=== PATIENT | male | born 1950 | race Caucasian/White ===

== ENCOUNTER 2017-05-14 11:18 | Inpatient (IN) | payer MEDICAID, MEDICARE, OTHER ==
[~2017-05-14] VITALS: Ht 175.3 cm; Wt 84.7 kg
[2017-05-14] VITALS (22 sets, daily range): BP systolic 128–168; BP diastolic 64–87; PULSE 60–92; RESP 12–20; Ht 175.3 cm; Wt 84.7 kg
[~2017-05-14 11:18] MED LIST: ALLO100T PO
[2017-05-14] MEDS ORDERED: TAMS0.4C2 PO (11:46)
[2017-05-14 12:35] LABS: BASOPHILS % 0.4 % (0.0-2.0); EOSINOPHILS % 0.7 % (0.0-7.0); HEMATOCRIT 43.1 % (42.0-52.0); HEMOGLOBIN 14.9 g/dl (14.0-18.0); LYMPHOCYTES # 0.6 10^3/ul (0.8-2.9); LYMPHOCYTES % 11.3 % (15.0-51.0); MEAN CORPUSCULAR HEMOGLOBIN 29.1 pg (29.0-33.0); MEAN CORPUSCULAR HGB CONC 34.6 g/dl (32.0-37.0); MEAN CORPUSCULAR VOLUME 84.2 fl (82.0-101.0); MEAN PLATELET VOLUME 10.8 fl (7.4-10.4); MONOCYTE # 0.5 10^3/ul (0.3-0.9); MONOCYTES % 9.6 % (0.0-11.0); NEUTROPHILS % 77.3 % (39.0-77.0); PLATELET COUNT 164 10^3/UL (140-415); RED BLOOD COUNT 5.12 10^6/ul (4.70-6.10); RED CELL DISTRIBUTION WIDTH 13.2 % (11.5-14.5); WHITE BLOOD COUNT 5.4 10^3/ul (4.8-10.8)
[2017-05-14 12:36] LABS: ADD UMIC NO; UR ASCORBIC ACID NEGATIVE (NEGATIVE); UR BILIRUBIN (Dip) NEGATIVE (NEGATIVE); UR BLOOD (Dip) NEGATIVE (NEGATIVE); UR CLARITY SLIGHTLY CLOUDY (CLEAR); UR COLOR YELLOW (YELLOW); UR GLUCOSE (Dip) NEGATIVE (NEGATIVE); UR KETONES (Dip) NEGATIVE (NEGATIVE); UR LEUKOCYTE ESTERASE (Dip) NEGATIVE Leu/ul (NEGATIVE); UR MUCUS MODERATE /HPF (NONE SEEN); UR NITRITE (Dip) NEGATIVE (NEGATIVE); UR RBC 1 /HPF (0-5); UR SPECIFIC GRAVITY (Dip) 1.024 (1.003-1.030); UR SQUAMOUS EPITHELIAL CELL FEW /HPF (FEW); UR TOTAL PROTEIN (Dip) NEGATIVE (NEGATIVE); UR UROBILINOGEN (Dip) 1+ mg/dL (NEGATIVE)
--- NOTE | 2017-05-14 12:41 | RADRPT ---
PROCEDURE: XR Chest. CLINICAL INDICATION: Preoperative TECHNIQUE: Single frontal view of the chest was obtained. COMPARISON: None. FINDINGS: A right-sided Port-A-Cath is noted with its tip at the superior cavoatrial junction. The heart and mediastinum are within normal limits. The lungs are clear. There is no significant pleural effusion or pneumothorax. IMPRESSION: No acute disease. Right-sided Port-A-Cath. RPTAT: EE Physician Khadar Date Time Electronically viewed and signed by Physician Khadar on 05/14/2017 12:40 RA/
[2017-05-14 12:54] LABS: INR 0.98
[2017-05-14 12:55] LABS: PARTIAL THROMBOPLASTIN TIME 29.7 Sec (25.0-35.0)
[2017-05-14] MEDS ORDERED: HETASTARCH 6% NACL 500 ML ONE (13:02)
[2017-05-14 13:34] LABS: ALBUMIN 4.2 g/dl (3.3-4.9); ALBUMIN/GLOBULIN RATIO 1.75; BILIRUBIN,INDIRECT 0.4 mg/dl (0-1.1); BILIRUBIN,TOTAL 0.4 mg/dl (0.2-1.3); TOTAL PROTEIN 6.6 g/dl (6.1-8.1)
--- NOTE | 2017-05-14 13:51 | HPN ---
Date/Time of Note Date/Time of Note DATE: 05/14/17 TIME: 13:51 Interval H&P Admission Note Pt. seen H&P reviewed: No system changes BRYAN POLO MD May 14, 2017 13:51
[2017-05-14 13:52] LABS: CALCIUM 9.4 mg/dl (8.4-10.2); CREATININE 0.89 mg/dl (0.61-1.24); POTASSIUM 3.7 mmol/L (3.5-5.1)
[2017-05-14] MEDS ORDERED: MIDAZOLAM 1 MG/ML 2 ML INJ ONE (14:06)
[2017-05-14] MEDS ORDERED: CEFAZOLIN 1 GM INJ ONE (14:06)
[2017-05-14] MEDS ORDERED: DEXAMETHASONE 4 MG/ML 1 ML INJ ONE (14:06)
[2017-05-14] MEDS ORDERED: ROCURONIUM 50 MG INJ ONE (14:06)
[2017-05-14] MEDS ORDERED: PROPOFOL 20 ML ONE (14:06)
[2017-05-14] MEDS ORDERED: ONDANSETRON 4 MG INJ ONE (14:06)
[2017-05-14] MEDS ORDERED: GLYCOPYRROLATE 0.4 MG INJ ONE (14:06)
[2017-05-14] MEDS ORDERED: NEOSTIGMINE 3 MG/3 ML SYRINGE ONE (14:06)
[2017-05-14] MEDS ORDERED: LABETALOL HCL 20MG INJ IV PRN (15:00)
[2017-05-14] MEDS ORDERED: MIDAZOLAM 1 MG/ML 2 ML INJ IV PRN (15:00)
[2017-05-14] MEDS ORDERED: ONDANSETRON 4 MG INJ IV PRN ×2 (15:00→17:30)
[2017-05-14] MEDS ORDERED: FENTAnyl 50 MCG/ML VIAL IV PRN ×2 (15:00)
[2017-05-14] MEDS ORDERED: hydrALAzine 20 MG INJ IV PRN (15:00)
[2017-05-14] MEDS ORDERED: HYDROmorphONE (0.2 MG/ML) 10ML SYG IV PRN ×3 (15:00)
[2017-05-14] MEDS ORDERED: ALBUTEROL 0.083% (NEB) 2.5 MG/3 ML AMP HHN PRN (15:00)
[2017-05-14] MEDS ORDERED: OXYCODONE/ACETAMINOPHEN (5/325) TAB PO PRN ×2 (15:00)
[2017-05-14] MEDS ORDERED: DIPHENHYDRAMINE 50 MG INJ IV PRN (15:00)
[2017-05-14] MEDS ORDERED: IPRATROPIUM (NEB) 0.5 MG/2.5 ML AMP HHN PRN (15:00)
[2017-05-14] MEDS ORDERED: TRIMETHOBENZAMIDE 100 MG/ML VIAL IM PRN (15:00)
[2017-05-14] MEDS ORDERED: EPHEDrine SULFATE 50 MG/5 ML SYG IV PRN (15:00)
[2017-05-14] MEDS ORDERED: MEPERIDINE 25 MG INJ IV PRN (15:00)
[2017-05-14] MEDS ORDERED: LABETALOL HCL 20MG INJ ONE (15:11)
[2017-05-14] MEDS ORDERED: PHENYLephrine (100 MCG/ML) 5ML SYG ONE (15:31)
--- NOTE | 2017-05-14 16:00 | OPR ---
Date/Time of Note Date/Time of Note DATE: 05/14/17 TIME: 15:59 Operative Report Procedure Date: May 14, 2017 Preoperative Diagnosis Med mass Postoperative Diagnosis Same Operation Performed Medistanotomy Surgeon: BRYAN POLO MD Anesthesia Type: general Estimated Blood Loss: none Transfusion Required: no Specimen: none Grafts/Implants: none Complications: no Pt Condition Post Procedure: stable Disposition: PACU Indications Med msss Operative\Procedure Findings dicrtated Procedure Description dictated BRYAN POLO MD May 14, 2017 16:00
[2017-05-14] MEDS: FENTAnyl 50 MCG/ML VIAL IV PRN ×2 (16:43→17:00)
--- NOTE | 2017-05-14 16:56 | RADRPT ---
PROCEDURE: XR Chest. CLINICAL INDICATION: Chest tube placement . TECHNIQUE: Single frontal chest x-ray. COMPARISON: 05/14/2017 FINDINGS: There is a new left-sided chest tube in place with tip near the level of the left hilum. Post surgic al skin earl are seen in the subclavian region. There is no definite pneumothorax. Right-sided Po rt-A-Cath is in place unchanged. The lungs are clear of infiltrates, edema, or effusions. .. The ca rdiomediastinal silhouette is unremarkable. The osseous structures are intact. IMPRESSION: Interval placement of left-sided chest tube with postsurgical changes at the left upper thorax. No evidence of pneumothorax. Right-sided Port-A-Cath in place.. RPTAT: GG .Carlos Galindo MD, Date Time Electronically viewed and signed by .Carlos Galindo MD, on 05/14/2017 16:55 .L/
[2017-05-14] MEDS ORDERED: ACETAMINOPHEN 325 MG TAB PO PRN (17:30)
[2017-05-14] MEDS ORDERED: MAGNESIUM HYDROXIDE 30ML CUP PO PRN (17:30)
[2017-05-14] MEDS ORDERED: HYDROCODONE/APAP (5/325) TAB PO PRN (17:30)
[2017-05-14] MEDS ORDERED: NACL 0.9% 3 ML SYG IV SCH (17:30)
[2017-05-14] MEDS ORDERED: DOCUSATE SODIUM 100 MG CAP PO PRN (17:30)
[2017-05-14] MEDS ORDERED: HYDROmorphONE 1 MG/ML SYG IV PRN (17:30)
[2017-05-14] MEDS ORDERED: ACETAMINOPHEN 650 MG SUPP PR PRN (17:30)
--- NOTE | 2017-05-14 17:45 | QN ---
Documentation Comment [id number] Presley MD May 14, 2017 17:45
[2017-05-14] MEDS ORDERED: ALBUTEROL/IPRATROPIUM (NEB) 3 ML AMP HHN PRN (18:00)
[2017-05-14] MEDS: DEXTROSE 5%-0.45% NACL 1,000 ML IV SCH (18:31)
--- NOTE | 2017-05-14 18:51 | CONS ---
DATE OF ADMISSION: 05/14/2017 DATE OF CONSULTATION: 05/14/2017 HISTORY OF PRESENT ILLNESS: Thank you Dr. Bledsoe for asking me to see the above patient in consultation. The patient is seen in the recovery room. The patient with a history of lymphoma. History of treatment to the mass who presented to this hospital with mass in the chest and underwent mediastinoscopy. The patient is denying any chest pain, not short of breath, no palpitations. No cough, no hemoptysis. PAST MEDICAL HISTORY: Positive for lymphoma, history of chemotherapy, and history of BPH. ALLERGIES: NEGATIVE. FAMILY HISTORY: Denies. SOCIAL HISTORY: Denies. MEDICATIONS: Flomax. REVIEW OF SYSTEMS: HEENT: Unremarkable. RESPIRATORY: No chest pain per patient. ABDOMEN: Unremarkable. EXTREMITIES: Unremarkable. GYMNASTICS INSTRUCTOR: Unremarkable. PHYSICAL EXAMINATION: GENERAL APPEARANCE: The patient is awake, alert. Not in any acute respiratory distress. VITAL SIGNS: Positive for blood pressure 153/77. HEENT: Head is atraumatic, normocephalic. Pupils equal and reactive. NECK: Supple. No JVD. LUNGS: Clear with rhonchi. CARDIAC: S1, S2, normal. Chest tube noted. ABDOMEN: Soft, bowel sounds present. EXTREMITIES: No cyanosis, clubbing, or edema. GYMNASTICS INSTRUCTOR: The patient is awake, alert, with no focal deficit. LABORATORY DATA: Sodium 141, potassium 3.7, and hematocrit 43.1. IMPRESSION: 1. The patient is status post mediastinoscopy. 2. The patient is status post mass. 3. History of lymphoma. PLAN: Continue oxygen and incentive spirometry. IV fluids and bronchodilators. PRN medication. Orders were done. Dictated By: Elliott Adame MD /addie/jay /Document#: [id number]
[2017-05-14] MEDS: TAMSULOSIN (SR) 0.4 MG CAP PO SCH (20:44)
[2017-05-15 00:10] VITALS: BP 123/62; RESP 19
[2017-05-15 00:11] VITALS: BP 134/64; PULSE 88; RESP 20
[2017-05-15] MEDS: PANTOPRAZOLE (EC) 40 MG TAB PO SCH (05:35)
[2017-05-15 05:37] LABS: ABNORMAL IP MESSAGE 1; HEMATOCRIT 40.4 % (42.0-52.0); HEMOGLOBIN 13.3 g/dl (14.0-18.0); LYMPHOCYTES # 0.3 10^3/ul (0.8-2.9); LYMPHOCYTES % 3.5 % (15.0-51.0); MEAN CORPUSCULAR HEMOGLOBIN 27.8 pg (29.0-33.0); MEAN CORPUSCULAR HGB CONC 32.9 g/dl (32.0-37.0); MEAN CORPUSCULAR VOLUME 84.5 fl (82.0-101.0); MEAN PLATELET VOLUME 10.6 fl (7.4-10.4); MONOCYTE # 0.6 10^3/ul (0.3-0.9); MONOCYTES % 8.4 % (0.0-11.0); NEUTROPHILS % 87.6 % (39.0-77.0); PLATELET COUNT 141 10^3/UL (140-415); POSITIVE DIFF @See below; RED BLOOD COUNT 4.78 10^6/ul (4.70-6.10); RED CELL DISTRIBUTION WIDTH 13.3 % (11.5-14.5); WHITE BLOOD COUNT 7.5 10^3/ul (4.8-10.8)
[2017-05-15] MEDS ORDERED: PANTOPRAZOLE 40 MG INJ IV SCH (06:00)
[2017-05-15 06:11] LABS: ALBUMIN 3.4 g/dl (3.3-4.9); ALBUMIN/GLOBULIN RATIO 1.54; BILIRUBIN,INDIRECT 0.4 mg/dl (0-1.1); BILIRUBIN,TOTAL 0.4 mg/dl (0.2-1.3); CREATININE 0.73 mg/dl (0.61-1.24); POTASSIUM 4.1 mmol/L (3.5-5.1); TOTAL PROTEIN 5.6 g/dl (6.1-8.1)
[2017-05-15 08:02] VITALS: BP 148/70; RESP 16
[2017-05-15] MEDS: DEXTROSE 5%-0.45% NACL 1,000 ML IV SCH (08:33)
--- NOTE | 2017-05-15 08:55 | OPR ---
DATE OF OPERATION: 05/14/2017 PREOPERATIVE DIAGNOSIS: Mediastinal mass. POSTOPERATIVE DIAGNOSIS: Mediastinal mass. OPERATION PERFORMED: 1. Mediastinotomy. 2. Mediastinal mass resection. 3. Resection of the left-sided rib. SURGEON: Dr. Bledsoe. ANESTHESIA: General. Risks, benefits, complications, alternatives have been explained to the patient and the family. Consent obtained. All taken. OPERATIVE PROCEDURE: Patient was placed in supine position, prepped and draped in usual sterile fashion. Time-out was called. Antibiotics were given. I made an 8 cm incision in the left chest just anterior to the angle of [place]. Incision was taken down to subcutaneous tissue. The 2nd rib was identified and it was resected about 6 cm. The mediastinum was then exposed. A 4 x 4 cm mass in the mediastinum was then identified and resected, sent for pathological examination. A 24-Tajik chest tube was placed into pleural cavity. The rib was placed back using steel wires. The muscular layers of the chest were reapproximated using 0 Vicryl suture in a running fashion. Subcutaneous tissue was reapproximated using 2-0 Vicryl suture and skin was closed using earl. The patient tolerated the procedure well. Dictated By: Enrique Bledsoe MD /addie/virginie /Document#: [id number]
--- NOTE | 2017-05-15 09:08 | RADRPT ---
PROCEDURE: XR Chest. CLINICAL INDICATION: Postop, shortness of breath TECHNIQUE: A single AP view of the chest was obtained. COMPARISON: Chest x-ray dated 05/14/2017 FINDINGS: There is a right chest Port-A-Cath with tip near the cavoatrial junction. A left-sided chest tube i s in place. There is mild bibasilar atelectasis. No focal airspace opacification, pleural effusion or pneumotho rax is seen. The cardiomediastinal silhouette is upper limits of normal in size. The osseous struc tures are unremarkable. There are postsurgical changes the left chest wall skin earl and costal wires. IMPRESSION: 1. Bibasilar atelectasis, mildly increased when compared to the prior examination. 2. Tubes and lines, as described above. RPTAT: HH .Kandi Osullivan MD, Date Time Electronically viewed and signed by .Kandi Osullivan MD, on 05/15/2017 09:07 .Antnoio/
[2017-05-15 14:30] VITALS: BP 135/67; RESP 18
--- NOTE | 2017-05-15 19:17 | RADRPT ---
Vent Rate: 63 bpm RR Interval: 0 msec MA Interval: 180 msec QRS Duration: 96 msec QT Interval: 434 msec QTC Interval: 444 msec P-R-T [place]: 64 - 66 - 63 degrees Normal sinus rhythm Normal ECG Electronically Signed By: Alfred Chen [id number]
[2017-05-15 19:43] VITALS: BP 152/78; RESP 18
[2017-05-15] MEDS: TAMSULOSIN (SR) 0.4 MG CAP PO SCH (21:00)
--- NOTE | 2017-05-15 23:39 | PN ---
Date/Time of Note Date/Time of Note DATE: 05/15/17 TIME: 23:38 Assessment/Plan VTE Prophylaxis VTE Prophylaxis Intervention: other Lines/Catheters IV [facility] Peripheral IV Urinary Cath still in place: No Assessment/Plan Chief Complaint/Hosp Course IMPRESSION: 1. The patient is status post mediastinoscopy. 2. The patient is status post mass. 3. History of lymphoma. PLAN PER SURGERY Problems: Subjective 24 Hr Interval Summary Respiratory: shortness of breath (BETTER) Cardiovascular: no complaints Exam/Review of Systems Vital Signs Vitals Vital Signs Date Time Temp Pulse Resp B/P Pulse Ox O2 Delivery O2 Flow Rate FiO2 05/15/17 22:11 Nasal Cannula 2.0 05/15/17 19:43 97.9 62 18 152/78 95 Intake and Output 05/14/17 05/14/17 05/15/17 15:00 23:00 07:00 Intake Total 2310 ml 1160 ml Output Total 75 ml 480 ml 1680 ml Balance 2235 ml -480 ml -520 ml Exam Neck: supple Respiratory: diminished breath sounds Cardiovascular: regular rate and rhythm Gastrointestinal: soft Musculoskeletal: nl extremities to inspection Extremities: normal pulses Results Result Diagram: 05/15/17 0449 05/15/17 0449 Results 24 hrs Laboratory Tests Test 05/15/17 04:49 White Blood Count 7.5 # Red Blood Count 4.78 Hemoglobin 13.3 L Hematocrit 40.4 L Mean Corpuscular Volume 84.5 Mean Corpuscular Hemoglobin 27.8 L Mean Corpuscular Hemoglobin Concent 32.9 Red Cell Distribution Width 13.3 Platelet Count 141 Mean Platelet Volume 10.6 H Neutrophils % 87.6 H Lymphocytes % 3.5 L Monocytes % 8.4 Eosinophils % 0.0 Basophils % 0.0 Nucleated Red Blood Cells % 0.0 Neutrophils # (Manual) 6.6 Lymphocytes # 0.3 L Monocytes # 0.6 Eosinophils # 0.0 Basophils # 0.0 Nucleated Red Blood Cells # 0.0 Sodium Level 139 Potassium Level 4.1 Chloride Level 103 Carbon Dioxide Level 28 Anion Gap 12 Blood Urea Nitrogen 12 Creatinine 0.73 Glucose Level 156 Calcium Level 9.0 Total Bilirubin 0.4 Direct Bilirubin 0.00 Indirect Bilirubin 0.4 Aspartate Amino Transf (AST/SGOT) 41 Alanine Aminotransferase (ALT/SGPT) 80 H Alkaline Phosphatase 48 Total Protein 5.6 #L Albumin 3.4 Globulin 2.20 Albumin/Globulin Ratio 1.54 Medications Medications Current Medications Tamsulosin HCl 0.4 mg 0.4 mg HS PO Last administered on 05/15/17 21:00; Admin Dose 0.4 MG; Start 05/14/17 at 21:00 Dextrose/Sodium Chloride (D5-1/2ns) 1,000 ml @ 60 mls/hr [id number] IV Last administered on 05/15/17 08:33; Admin Dose 60 MLS/HR; Start 05/14/17 at 17:14 Ondansetron HCl (Zofran Inj) 4 mg Q6H PRN IV NAUSEA AND/OR VOMITING; Start 05/14 at 17:30 Acetaminophen (Tylenol Tab) 650 mg Q6H PRN PO PAIN LEVEL 1-3 OR FEVER; Start at 17:30 Acetaminophen (Tylenol Supp) 650 mg Q6H PRN DC PAIN LEVEL 1-3 OR FEVER; Start 05/14/17 at 17:30 Acetaminophen/ Hydrocodone Bitart ([place] (5/325)) 1 tab Q6H PRN PO MODERATE PAIN LEVEL 4-6; Start 05/14/17 at 17:30 Hydromorphone HCl (Dilaudid) 0.5 mg Q4H PRN IV SEVERE PAIN LEVEL 7-10; Start at 17:30 Docusate Sodium (Colace) 100 mg Q12H PRN PO CONSTIPATION; Start 05/14/17 at 17: 30 Magnesium Hydroxide (Milk Of Mag) 30 ml DAILY PRN PO CONSTIPATION; Start at 17:30 Bisacodyl (Dulcolax) 5 mg DAILY PRN PO CONSTIPATION; Start 05/14/17 at 17:30 Pantoprazole (Protonix Tab) 40 mg DAILY@06 PO Last administered on 05/15/17 05: 35; Admin Dose 40 MG; Start 05/15/17 at 06:00 ZA ZEPEDA MD May 15, 2017 23:39
[2017-05-16] MEDS: DEXTROSE 5%-0.45% NACL 1,000 ML IV SCH ×2 (00:12→19:14)
[2017-05-16 02:00] VITALS: BP 113/62; RESP 18
[2017-05-16 05:32] LABS: ABNORMAL IP MESSAGE 1; BASOPHILS % 0.2 % (0.0-2.0); EOSINOPHILS % 0.5 % (0.0-7.0); HEMATOCRIT 38.7 % (42.0-52.0); HEMOGLOBIN 12.6 g/dl (14.0-18.0); LYMPHOCYTES # 0.4 10^3/ul (0.8-2.9); LYMPHOCYTES % 6.5 % (15.0-51.0); MEAN CORPUSCULAR HEMOGLOBIN 27.9 pg (29.0-33.0); MEAN CORPUSCULAR HGB CONC 32.6 g/dl (32.0-37.0); MEAN CORPUSCULAR VOLUME 85.8 fl (82.0-101.0); MEAN PLATELET VOLUME 10.4 fl (7.4-10.4); MONOCYTE # 0.6 10^3/ul (0.3-0.9); MONOCYTES % 10.5 % (0.0-11.0); NEUTROPHILS % 81.8 % (39.0-77.0); PLATELET COUNT 124 10^3/UL (140-415); POSITIVE DIFF @See below; RED BLOOD COUNT 4.51 10^6/ul (4.70-6.10); RED CELL DISTRIBUTION WIDTH 13.4 % (11.5-14.5); WHITE BLOOD COUNT 5.7 10^3/ul (4.8-10.8)
[2017-05-16 05:52] LABS: ALBUMIN 3.4 g/dl (3.3-4.9); ALBUMIN/GLOBULIN RATIO 1.41; BILIRUBIN,INDIRECT 0.2 mg/dl (0-1.1); BILIRUBIN,TOTAL 0.2 mg/dl (0.2-1.3); CALCIUM 8.5 mg/dl (8.4-10.2); CREATININE 0.83 mg/dl (0.61-1.24); POTASSIUM 3.8 mmol/L (3.5-5.1); TOTAL PROTEIN 5.8 g/dl (6.1-8.1)
[2017-05-16] MEDS: PANTOPRAZOLE (EC) 40 MG TAB PO SCH (06:05)
[2017-05-16 07:58] VITALS: BP 146/78; RESP 16
[2017-05-16] MEDS: BISACODYL (EC) 5 MG TAB PO PRN ×2 (10:21→21:54)
--- NOTE | 2017-05-16 13:20 | PN ---
Date/Time of Note Date/Time of Note DATE: 05/16/17 TIME: 13:19 Assessment/Plan Lines/Catheters IV Catheter Type (from Nrsg): Peripheral IV Graves in Place (from Nrsg): No Assessment/Plan Chief Complaint/Hosp Course SP Mediastanotomy will DC CT DC planning awaiting path report Problems: Subjective 24 Hr Interval Summary Constitutional: improved Pain Control: mild Exam/Review of Systems Vital Signs Vitals Vital Signs Date Time Temp Pulse Resp B/P Pulse Ox O2 Delivery O2 Flow Rate FiO2 05/16/17 07:58 98.6 62 16 146/78 96 05/16/17 07:45 Nasal Cannula 2.0 Intake and Output 05/15/17 05/15/17 05/16/17 15:00 23:00 07:00 Intake Total 280 ml 1340 ml 1950 ml Output Total 1590 ml 1410 ml Balance 280 ml -250 ml 540 ml Exam Neck: non-tender, supple Respiratory: clear to auscultation, normal air movement Cardiovascular: nl pulses, regular rate and rhythm Gastrointestinal: nl liver, spleen, non-tender, soft Results Result Diagram: 05/16/17 0453 05/16/17 0453 BRYAN POLO MD May 16, 2017 13:20
[2017-05-16 14:45] VITALS: BP 118/74; RESP 16
--- NOTE | 2017-05-16 16:35 | PN ---
Date/Time of Note Date/Time of Note DATE: 05/16/17 TIME: 16:32 Assessment/Plan VTE Prophylaxis VTE Prophylaxis Intervention: other Lines/Catheters IV C[facility]ter Type (from [facility]): Peripheral IV Urinary Cath still in place: No Assessment/Plan Chief Complaint/Hosp Course IMPRESSION: 1. The patient is status post mediastinoscopy. 2. The patient is status post mass.biopsy 3. History of lymphoma. 4 chest tube+ plan per surgery Problems: Subjective 24 Hr Interval Summary Respiratory: No pleuritic pain, No shortness of breath Cardiovascular: no complaints Gastrointestinal: no complaints Exam/Review of Systems Vital Signs Vitals Vital Signs Date Time Temp Pulse Resp B/P Pulse Ox O2 Delivery O2 Flow Rate FiO2 05/16/17 14:45 98.8 74 16 118/74 98 05/16/17 07:45 Nasal Cannula 2.0 Intake and Output 05/15/17 05/15/17 05/16/17 15:00 23:00 07:00 Intake Total 280 ml 1340 ml 1950 ml Output Total 1590 ml 1410 ml Balance 280 ml -250 ml 540 ml Exam Respiratory: diminished breath sounds Cardiovascular: regular rate and rhythm Gastrointestinal: soft Musculoskeletal: nl extremities to inspection Extremities: normal pulses Results Result Diagram: 05/16/17 0453 05/16/17 0453 Results 24 hrs Laboratory Tests Test 05/16/17 04:53 White Blood Count 5.7 # Red Blood Count 4.51 L Hemoglobin 12.6 L Hematocrit 38.7 L Mean Corpuscular Volume 85.8 Mean Corpuscular Hemoglobin 27.9 L Mean Corpuscular Hemoglobin Concent 32.6 Red Cell Distribution Width 13.4 Platelet Count 124 L Mean Platelet Volume 10.4 Neutrophils % 81.8 H Lymphocytes % 6.5 L Monocytes % 10.5 Eosinophils % 0.5 Basophils % 0.2 Nucleated Red Blood Cells % 0.0 Neutrophils # (Manual) 4.7 Lymphocytes # 0.4 L Monocytes # 0.6 Eosinophils # 0.0 Basophils # 0.0 Nucleated Red Blood Cells # 0.0 Sodium Level 140 Potassium Level 3.8 Chloride Level 104 Carbon Dioxide Level 31 Anion Gap 9 Blood Urea Nitrogen 14 Creatinine 0.83 Glucose Level 114 # Calcium Level 8.5 Total Bilirubin 0.2 Direct Bilirubin 0.00 Indirect Bilirubin 0.2 Aspartate Amino Transf (AST/SGOT) 42 Alanine Aminotransferase (ALT/SGPT) 64 Alkaline Phosphatase 44 Total Protein 5.8 L Albumin 3.4 Globulin 2.40 Albumin/Globulin Ratio 1.41 Medications Medications Current Medications Tamsulosin HCl 0.4 mg 0.4 mg HS PO Last administered on 05/15/17 21:00; Admin Dose 0.4 MG; Start 05/14/17 at 21:00 Dextrose/Sodium Chloride (D5-1/2ns) 1,000 ml @ 60 mls/hr [id number] IV Last administered on 05/16/17 00:12; Admin Dose 60 MLS/HR; Start 05/14/17 at 17:14 Ondansetron HCl (Zofran Inj) 4 mg Q6H PRN IV NAUSEA AND/OR VOMITING; Start 05/14 at 17:30 Acetaminophen (Tylenol Tab) 650 mg Q6H PRN PO PAIN LEVEL 1-3 OR FEVER; Start at 17:30 Acetaminophen (Tylenol Supp) 650 mg Q6H PRN PA PAIN LEVEL 1-3 OR FEVER; Start 05/14/17 at 17:30 Acetaminophen/ Hydrocodone Bitart ([place] (5/325)) 1 tab Q6H PRN PO MODERATE PAIN LEVEL 4-6; Start 05/14/17 at 17:30 Hydromorphone HCl (Dilaudid) 0.5 mg Q4H PRN IV SEVERE PAIN LEVEL 7-10; Start at 17:30 Docusate Sodium (Colace) 100 mg Q12H PRN PO CONSTIPATION; Start 05/14/17 at 17: 30 Magnesium Hydroxide (Milk Of Mag) 30 ml DAILY PRN PO CONSTIPATION; Start at 17:30 Bisacodyl (Dulcolax) 5 mg DAILY PRN PO CONSTIPATION Last administered on 10:21; Admin Dose 5 MG; Start 05/14/17 at 17:30 Pantoprazole (Protonix Tab) 40 mg DAILY@06 PO Last administered on 05/16/17 06: 05; Admin Dose 40 MG; Start 05/15/17 at 06:00 ZA ZEPEDA MD May 16, 2017 16:35
--- NOTE | 2017-05-16 16:52 | RADRPT ---
PROCEDURE: XR Chest. CLINICAL INDICATION: Chest pain . TECHNIQUE: Single frontal chest x-ray. COMPARISON: 05/15/2017 FINDINGS: There has been removal of the left-sided chest tube without evidence of pneumothorax. Postsurgical w ires and earl are seen overlying the left upper thorax. There is a right-sided Port-A-Cath in mesha ce with tip in the superior vena cava. The lungs are clear of alveolar infiltrates, edema, or effusi ons. There is right basilar atelectatic changes. .. The cardiomediastinal silhouette is unremarkabl e. The osseous structures are intact. IMPRESSION: Removal of left-sided chest tube without evidence of pneumothorax. Postsurgical changes in the left upper thorax. Right-sided Port-A-Cath in place. Right basilar atelectasis.. RPTAT: GG .Carlos Galindo MD, MD Date Time Electronically viewed and signed by .Carlos Galindo MD, MD on 05/16/2017 16:52 .L/
[2017-05-16 19:00] VITALS: BP 139/78; RESP 18
[2017-05-16] MEDS: TAMSULOSIN (SR) 0.4 MG CAP PO SCH (21:54)
[2017-05-17 02:00] VITALS: BP 124/70; RESP 18
[2017-05-17] MEDS: PANTOPRAZOLE (EC) 40 MG TAB PO SCH (05:53)
[2017-05-17 08:04] VITALS: BP 117/68; RESP 18
[2017-05-17] MEDS: DEXTROSE 5%-0.45% NACL 1,000 ML IV SCH (09:06)
--- NOTE | 2017-05-17 12:47 | PN ---
Date/Time of Note Date/Time of Note DATE: 05/17/17 TIME: 12:45 Assessment/Plan VTE Prophylaxis VTE Prophylaxis Intervention: ambulation Lines/Catheters IV Catheter Type (from [facility]): Peripheral IV Urinary Cath still in place: No Assessment/Plan Chief Complaint/Hosp Course 1. Status post mediastinoscopy. 2. The patient is status post mass biopsy 3. History of lymphoma. 4 s/p chest tube removal Problems: Assessment/Plan 1. d/c IV fluids 2. continue ambulation 3. resolving of constipation Subjective 24 Hr Interval Summary Gastrointestinal: constipation Exam/Review of Systems Vital Signs Vitals Vital Signs Date Time Temp Pulse Resp B/P Pulse Ox O2 Delivery O2 Flow Rate FiO2 05/17/17 08:04 97.8 68 18 117/68 94 05/16/17 07:45 Nasal Cannula 2.0 Intake and Output 05/16/17 05/16/17 05/17/17 15:00 23:00 07:00 Intake Total 1700 ml 400 ml Balance 1700 ml 400 ml Exam Constitutional: alert, oriented Respiratory: clear to auscultation Cardiovascular: other (surgical wound clean and dry), regular rate and rhythm Results Result Diagram: 05/16/17 0453 05/16/17 0453 Medications Medications Current Medications Tamsulosin HCl 0.4 mg 0.4 mg HS PO Last administered on 05/16/17 21:54; Admin Dose 0.4 MG; Start 05/14/17 at 21:00 Dextrose/Sodium Chloride (D5-1/2ns) 1,000 ml @ 60 mls/hr [id number] IV Last administered on 05/17/17 09:06; Admin Dose 60 MLS/HR; Start 05/14/17 at 17:14 Ondansetron HCl (Zofran Inj) 4 mg Q6H PRN IV NAUSEA AND/OR VOMITING; Start 05/14 at 17:30 Acetaminophen (Tylenol Tab) 650 mg Q6H PRN PO PAIN LEVEL 1-3 OR FEVER; Start at 17:30 Acetaminophen (Tylenol Supp) 650 mg Q6H PRN [place] PAIN LEVEL 1-3 OR FEVER; Start 05/14/17 at 17:30 Acetaminophen/ Hydrocodone Bitart ([place] (5/325)) 1 tab Q6H PRN PO MODERATE PAIN LEVEL 4-6; Start 05/14/17 at 17:30 Hydromorphone HCl (Dilaudid) 0.5 mg Q4H PRN IV SEVERE PAIN LEVEL 7-10; Start at 17:30 Docusate Sodium (Colace) 100 mg Q12H PRN PO CONSTIPATION; Start 05/14/17 at 17: 30 Magnesium Hydroxide (Milk Of Mag) 30 ml DAILY PRN PO CONSTIPATION; Start at 17:30 Bisacodyl (Dulcolax) 5 mg DAILY PRN PO CONSTIPATION Last administered on 21:54; Admin Dose 5 MG; Start 05/14/17 at 17:30 Pantoprazole (Protonix Tab) 40 mg DAILY@06 PO Last administered on 05/17/17 05: 53; Admin Dose 40 MG; Start 05/15/17 at 06:00 NEVA CAMPA May 17, 2017 12:47
[2017-05-17] MEDS ORDERED: LACTULOSE 30ML CUP PO PRN (13:00)
[2017-05-17] MEDS ORDERED: BISACODYL 10 MG SUPP PR ONE (13:00)
--- NOTE | 2017-05-17 13:09 | PDOCDIS ---
Discharge Instructions CONDITION Patient Condition: Good HOME CARE INSTRUCTIONS: Diet Instructions: RegularSpecial Diet: CARDIAC ACTIVITY: Activity Restrictions: Slowly Increase Activity Bathing Restrictions: warm shower, pat dry after FOLLOW UP/APPOINTMENTS Follow-up Plan dr Posey 1 week SCHOOL/WORK RELEASE May return to School/Work with: With Restrictions NEVA CAMPA May 17, 2017 13:08
[2017-05-17 15:05] VITALS: BP 113/66; RESP 18
--- NOTE | 2017-05-17 15:18 | PDOCDIS ---
Discharge Instructions CONDITION Patient Condition: Stable HOME CARE INSTRUCTIONS: Diet Instructions: RegularSpecial Diet: CARDIAC ACTIVITY: Activity Restrictions: Slowly Increase Activity Bathing Restrictions: warm shower, pat dry after FOLLOW UP/APPOINTMENTS Follow-up Plan see own pcp 1 wk, see dr arango 1 wk see own oncologist 1 wk SCHOOL/WORK RELEASE May return to School/Work with: With Restrictions ZA ZEPEDA MD May 17, 2017 15:18
[2017-05-17] MEDS ORDERED: ACET325T40 PO (15:19)
== END 2017-05-17 17:40 | disposition home or self-care (01) | DRG 165 ==
LOC: SDS 11:18 → MS1 17:31 → SDS 17:38
PROVIDERS: ADMIT Thoracic Surgery (Cardiothoracic Vascular Surgery); ATTEND Thoracic Surgery (Cardiothoracic Vascular Surgery)
PROC: 0WBC0ZZ Excision of Mediastinum, Open Approach (ICD-10-PCS; principal; 2017-05-14 13:30)
DX: J98.59 Other diseases of mediastinum, not elsewhere classified (principal); Z85.72 Personal history of non-Hodgkin lymphomas; Z92.21 Personal history of antineoplastic chemotherapy
CPT/HCPCS: 71010; 80053; 81001; 81003; 85025; 85610; 85730; 86850; 86900; 86901; 86920; 88307; 88331; 93005; C9113; J0690; J1100; J1644; J2175; J2250; J2370; J2405; J2710; J3010; J7042

== ENCOUNTER 2017-05-25 12:24 | Emergency (ER) | payer MEDICARE ==
[~2017-05-25] VITALS: Ht 167.6 cm; Wt 85.0 kg
[~2017-05-25 12:24] MED LIST changes: +ACET325T40 PO; -ALLO100T PO; +TAMS0.4C2 PO
[2017-05-25 12:29] VITALS: Ht 167.6 cm; Wt 85.0 kg
[2017-05-25 14:03] LABS: UR BACTERIA FEW /HPF (NONE SEEN); UR RBC 0 /HPF (0-5); UR SQUAMOUS EPITHELIAL CELL FEW /HPF (FEW)
[2017-05-25 14:05] LABS: ADD UMIC YES; UR ASCORBIC ACID NEGATIVE (NEGATIVE); UR BILIRUBIN (Dip) NEGATIVE (NEGATIVE); UR BLOOD (Dip) 1+ mg/dL (NEGATIVE); UR CLARITY CLEAR (CLEAR); UR COLOR YELLOW (YELLOW); UR GLUCOSE (Dip) NEGATIVE (NEGATIVE); UR KETONES (Dip) NEGATIVE (NEGATIVE); UR LEUKOCYTE ESTERASE (Dip) 1+ Leu/ul (NEGATIVE); UR NITRITE (Dip) NEGATIVE (NEGATIVE); UR SPECIFIC GRAVITY (Dip) 1.005 (1.003-1.030); UR TOTAL PROTEIN (Dip) NEGATIVE (NEGATIVE); UR UROBILINOGEN (Dip) NEGATIVE (NEGATIVE)
[2017-05-25] MEDS ORDERED: CIPR500T4 PO (14:20)
--- NOTE | 2017-05-25 14:22 | ERD ---
ER Documentation Chief Complaint Date/Time DATE: 05/25/17 TIME: 14:21 Chief Complaint difficulty urinating, takes flomax but still has problems, mild fever today HPI This is a 67-year-old male says that he is having some urinary frequency last night with some dysuria today. No blood. Said he had temperature of 99.5 at the most. No chills vomiting no abdominal pain no suprapubic pain no penile discharge. ROS All systems reviewed and are negative except as per history of present illness. Medications Home Meds Active Scripts Ciprofloxacin Hcl* (Ciprofloxacin Hcl*) 500 Mg Tablet, 500 MG PO BID, #20 TAB Prov:BAYLEE MIMS DO 05/25/17 Acetaminophen (MAPAP) 325 Mg Tablet, 650 MG PO Q6H Y for PAIN LEVEL 1-3 OR FEVER for 7 Days, TAB Prov:ZA ZEPEDA MD 05/17/17 Reported Medications Tamsulosin Hcl* (Tamsulosin Hcl*) 0.4 Mg Cap.er.24h, 0.4 MG PO HS, CAP 05/14/17 Allergies Allergies: Coded Allergies: No Known Allergy (Unverified , 05/14/17) PMhx/Soc History of Surgery: Yes (HERNIA, APENDIX) Anesthesia Reaction: No Hx Neurological Disorder: No Hx Respiratory Disorders: No Hx Cardiac Disorders: No Hx Psychiatric Problems: No Hx Miscellaneous Medical Probl: Yes (LYMPHOMA) Hx Alcohol Use: Yes (SOCIALY) Hx Substance Use: No Hx Tobacco Use: No FmHx Family History: No coronary disease Physical Exam Vitals Vital Signs Date Time Temp Pulse Resp B/P Pulse Ox O2 Delivery O2 Flow Rate FiO2 05/25/17 12:29 100.3 99 20 141/78 98 Physical Exam Const: Well-developed, well-nourished Head: Atraumatic, normocephalic Eyes: Normal Conjunctiva, PERRLA, EOMI, normal sclera, no nystagmus ENT: Normal External Ears, Nose and Mouth, moist mucus membranes. Neck: Full range of motion. No meningismus, no lymphadenopathy. Resp: Clear to auscultation bilaterally, no wheezing, rhonchi, rales Cardio: Regular rate and rhythm, no murmurs, S1 S2 present Abd: Soft, non tender x 4, non distended. Normal bowel sounds, no guarding or rebound, no pulsitile abdominal masses or bruits Skin: No petechiae or rashes, no ecchymosis , no maculopapular rash Back: No midline or flank tenderness Ext: No cyanosis, or edema, FROM x 4, normal inspection, neurovascularly intact x 4 Neur: Awake and alert, STR 5/5 x 4, sensation intact x 4, no focal findings, cerebellum intact Psych: Normal Mood and Affect Results 24 hrs Laboratory Tests Test 05/25/17 13:25 Urine Color YELLOW Urine Clarity CLEAR Urine pH 6.0 Urine Specific [place] 1.005 Urine Ketones NEGATIVEmg/dL Urine Nitrite NEGATIVEmg/dL Urine Bilirubin NEGATIVEmg/dL Urine Urobilinogen NEGATIVEmg/dL Urine Leukocyte Esterase 1+Geovanni/ul Urine Microscopic RBC 0/HPF Urine Microscopic WBC 15/HPF Urine Squamous Epithelial Cells FEW/HPF Urine Bacteria FEW/HPF Urine Hemoglobin 1+mg/dL Urine Glucose NEGATIVEmg/dL Urine Total Protein NEGATIVEmg/dl Procedures/MDM Patient has white blood cells in his urine consistent with the tract infection will treat with Cipro Departure Diagnosis: Primary Impression: UTI (urinary tract infection) Urinary tract infection type: acute cystitis Hematuria presence: without hematuria Qualified Code: N30.00 - Acute cystitis without hematuria Condition: Stable Patient Instructions: Understanding Urinary Tract Infections (UTIs) BAYLEE MIMS DO May 25, 2017 14:22
== END 2017-05-25 14:50 | disposition home or self-care (01) ==
LOC: FTE 12:24
DX: N30.00 Acute cystitis without hematuria (principal)
CPT/HCPCS: 81001; 99283

== ENCOUNTER 2017-07-23 08:13 | Emergency (ER) | payer MEDICARE, OTHER ==
[~2017-07-23] VITALS: Ht 175.3 cm; Wt 85.9 kg
[~2017-07-23 08:13] MED LIST changes: +CIPR500T4 PO
[2017-07-23 08:17] VITALS: Ht 175.3 cm; Wt 85.9 kg
[2017-07-23 08:57] LABS: URINE BLOOD (Dip) POC 3+ (NEGATIVE)
--- NOTE | 2017-07-23 09:01 | ERD ---
ER Documentation Chief Complaint Chief Complaint hematuria this morning, denies pain HPI 67-year-old male presents to ED with hematuria this morning. Patient states that his urine is red. He also has slight dysuria. He has increased urinary frequency last night. Denies fever or chills. Denies pelvic pain or flank pain. Patient has history of lymphoma and BPH. He also has an episode of UTI a few months ago. Patient is taking Imbruvica for lymphoma. He is concerned that the hematuria is caused by that medication. ROS All systems reviewed and are negative except as per history of present illness. Medications Home Meds Active Scripts Ciprofloxacin Hcl* (Ciprofloxacin Hcl*) 500 Mg Tablet, 500 MG PO BID for 14 Days , TAB Prov:TATY MAYERS [employer] 07/23/17 Ciprofloxacin Hcl* (Ciprofloxacin Hcl*) 500 Mg Tablet, 500 MG PO BID, #20 TAB Prov:BAYLEE MIMS DO 05/25/17 Acetaminophen (MAPAP) 325 Mg Tablet, 650 MG PO Q6H Y for PAIN LEVEL 1-3 OR FEVER for 7 Days, TAB Prov:ZA ZEPEDA MD 05/17/17 Reported Medications Tamsulosin Hcl* (Tamsulosin Hcl*) 0.4 Mg Cap.er.24h, 0.4 MG PO HS, CAP 05/14/17 Allergies Allergies: Coded Allergies: No Known Allergy (Unverified , 07/23/17) PMhx/Soc History of Surgery: Yes (HERNIA, APENDIX) Anesthesia Reaction: No Hx Neurological Disorder: No Hx Respiratory Disorders: No Hx Cardiac Disorders: No Hx Psychiatric Problems: No Hx Miscellaneous Medical Probl: Yes (LYMPHOMA) Hx Alcohol Use: Yes (SOCIALLY) Hx Substance Use: No Hx Tobacco Use: No Smoking Status: Never smoker Physical Exam Vitals Vital Signs Date Time Temp Pulse Resp B/P Pulse Ox O2 Delivery O2 Flow Rate FiO2 07/23/17 08:17 99.0 94 18 138/98 98 Physical Exam General: Well-developed, well-nourished, conscious and coherent, in no distress Skin: Warm and dry without rash, good texture and turgor Head: Normocephalic without evidence of trauma Eyes: Sclera and conjunctivae normal; pupils equal, round, and reactive to light; extraocular movements are intact Ears: Canals are patent. Tympanic membranes are clear Chest: Normal AP diameter. Good expansion without retractions. Nontender. Lungs are clear to auscultate bilaterally with good tidal volume Heart: Regular rate and rhythm. No murmur, rub, or gallops heard Abdomen: Soft and nontender without masses, guarding, or rebound. Bowel sounds are active. No hepatosplenomegaly Back: Without spinal or CVA tenderness Pelvis: Nontender to palpation and stable to compression Extremities: Full range of motion. Good strength bilaterally. No clubbing, cyanosis, or edema. Peripheral pulses are intact. Sensation intact Neuro: Alert and oriented 4, GCS 15. Cranial nerves grossly intact. Motor and sensory exams nonfocal. Moves all extremities. Speech clear. Gait normal Results 24 hrs Laboratory Tests Test 07/23/17 08:55 Bedside Urine pH (LAB) 7.0 Bedside Urine Protein (LAB) 3+ Bedside Urine Glucose (UA) Negative Bedside Urine Ketones (LAB) Trace Bedside Urine Blood 3+ Bedside Urine Nitrite (LAB) Positive Bedside Urine Leukocyte Esterase (L 3+ Procedures/MDM Well-appearing 67-year-old male present ED with hematuria and dysuria 1 day. Urine dip showed 3+ leukocyte, positive nitrite, 3+ blood, and 3+ protein. Patient has urinary tract infection. Urine sent out for culture and sensitivity. Low suspicion for pyelonephritis. I doubt epididymitis or orchitis. Patient appears well, stable for discharge and outpatient management. Medical decision making shared with patient and family. Education provided to patient and family. Patient and family expressed understanding of the plan. Medications on discharge: Cipro. Follow-up: Primary care provider in 2-3 days or return to ED if worse. Disclaimer: Inadvertent spelling and grammatical errors are likely due to EHR/ dictation software use and do not reflect on the overall quality of patient care. Also, please note that the electronic time recorded on this note does not necessarily reflect the actual time of the patient encounter. Departure Diagnosis: Primary Impression: UTI (urinary tract infection) Urinary tract infection type: acute cystitis Hematuria presence: with hematuria Qualified Code: N30.01 - Acute cystitis with hematuria Condition: Stable TATY MAYERS NP Jul 23, 2017 09:01
[2017-07-23] MEDS ORDERED: CIPR500T4 PO (09:16)
== END 2017-07-23 09:30 | disposition home or self-care (01) ==
LOC: FTE 08:13
DX: N30.01 Acute cystitis with hematuria (principal)
CPT/HCPCS: 81003; 87086; 99283

== ENCOUNTER 2018-02-12 18:16 | Emergency (ER) | END 2018-02-12 20:05 | disposition home or self-care (01) ==

== ENCOUNTER 2018-04-02 23:09 | Emergency (ER) | END 2018-04-03 00:41 | disposition home or self-care (01) ==